=== PATIENT | male | born 1965 | race Caucasian/White ===

== ENCOUNTER 2016-12-26 11:10 | Outpatient (CLI) ==
[2016-02-21 17:17] VITALS: BMI 29.0
--- NOTE | 2016-12-26 14:56 | MRI ---
EXAM: MRI lumbar spine without IV contrast. DATE: 26 Dec 2016. HISTORY: Low back pain. TECHNIQUE: Sagittal and axial T1W and T2W sequences of the lumbar spine along with sagittal IR and coronal T2W sequences were obtained using 1.2 Debi magnet. No IV contrast. COMPARISON: MRI L-spine 16 November 2015. FINDINGS: There are five [id number]-bic-hfblrdt lumbar vertebra. Alignment of the lumbar spine is normal. No acute lumbar fracture, subluxation, osseous malignancy, or pars interarticularis defect is iden tified. Lumbar vertebra are normal in height. Chronic Schmorl's nodes are seen at T11 through L3 l evels. Small/moderate anterolateral osteophytes are visible at L1-2 through L5-S1. Mild L1-2, L2-3 , and L3-4 disc space narrowing is detected. No sacral fracture or stress reaction is evident. SI joints are unremarkable. Conus medullaris terminates at T12-L1. Visible spinal cord is normal. No retroperitoneal lymphadenopathy, paraspinal mass, or aortic aneurysm is detected. Paraspinal mus culature is symmetric bilaterally. Visible portions of the liver, spleen, adrenal glands, and right kidney are normal. A T2W bright, T1W dark, to by 2 cm lesion in the upper pole cortex left kidney is essentially unchanged from November 2015. No bowel obstruction or neoplasm is evident. Segmental analysis: T11-12: Normal, except for minor right foraminal narrowing due to minor right facet arthropathy. T12-L1: Normal. L1-2: Small concentric disc bulge, minor facet arthropathy and dorsal epidural fat cause mild centr al canal stenosis and minor bilateral foraminal encroachment. L2-3: Small concentric disc bulge, mild facet arthropathy, and abundant dorsal epidural fat cause m ild central canal stenosis and mild bilateral foraminal stenoses. L3-4: Small concentric disc bulge, mild bilateral facet arthropathy, and abundant dorsal epidural f at cause marked central canal stenosis and moderate to marked narrowing at the opening to each alpesh en. Each L3 nerve root appears to contact the disc bulge at the foramen. L4-5: Small concentric disc bulge, mild bilateral facet arthropathy, mild ligamentum flavum hypertr ophy and dorsal epidural fat cause marked central canal stenosis and marked bilateral foraminal sten oses. Each L4 nerve root appears to contact the disc bulge near the lateral margin of the foramen. L5-S1: Moderate concentric disc bulge and mild facet arthropathy cause moderate right and severe le ft foraminal stenoses. Right L5 nerve root contacts the disc bulge in the foramen. Left L5 nerve r oot is compressed in the foramen. No central canal stenosis. IMPRESSIONS: 1. Lumbar spine moderate spondylosis, mild facet arthropathy, and multilevel DDD - - mildly worse c ompared to November 2015. 2. Multilevel central canal stenoses (L1-2: Mild. L2-3: Mild. L3-4: Marked. L4-5: Marked). 3. Multilevel foraminal stenoses. Bilateral L3, L4, and L5 nerve roots are compromised near the fo ramen, and may be sources for pain/radiculopathy. 4. T-L-spine tiny, chronic Schmorl's nodes. 5. Left kidney cortical cyst - likely benign.
== END 2016-12-26 11:11 ==
LOC: RAD 11:10
PROVIDERS: ATTEND Physician Assistant Medical
DX: M54.2 Cervicalgia (principal); M54.5 Low back pain

== ENCOUNTER 2016-12-30 10:29 | Outpatient (CLI) ==
[2016-02-21 17:17] VITALS: BMI 29.0
--- NOTE | 2016-12-30 20:44 | MRI ---
EXAM: Cervical spine MRI without contrast. HISTORY: Neck pain. COMPARISON: Cervical spine CT scan 02/21/2016. TECHNIQUE: Multiplanar, multisequence MR images were acquired of the cervical spine without contras t. FINDINGS: There is a miles cisterna magna. The cervical cord has normal signal intensity. There is minor mid cervical levoscoliosis centered at C4-5 and mild rightward curvature of the upper thoraci c spine. There are postoperative ACDF changes at C6-7. Metallic artifact is present consistent wit h anterior screw and plate fixation. Prominent ventral osteophytes are present at C4-5 and C5-6. C anal diameter is developmentally narrow. There is mild adenoidal, palatine and lingual tonsillar hy pertrophy. This may represent normal variation or reactive adenopathy. Lung apices are clear. The re is a partially visualized right upper back intramuscular bright T1-T2 signal fatty lesion that me asures at least 2 cm AP by 5.5 cm TX. This has a few linear intermediate T1-T2 signal septations wi thout nodularity. C2-3: There is a small left posterior disc bulge and tiny left paracentral annular fissure that min imally indents the cervical cord. Ligamentum flavum hypertrophy is present and there is minor spina l stenosis. AP diameter of the thecal sac is 9.3 mm. C3-4: There is a mild disc bulge that minimally indents the cervical cord and minor left uncoverteb ral hypertrophy. There is mild spinal stenosis. AP diameter of the thecal sac is 9 mm. C4-5: There is a minor disc bulge and minor left paracentral disc osteophyte complex. There is no c entral canal stenosis or foraminal stenosis. C5-6: There is a posterior disc osteophyte complex with a small central disc protrusion that mildly indents the cervical cord. Ligamentum flavum hypertrophy and bilateral uncovertebral hypertrophy a re present. There is mild spinal stenosis and moderately severe right and mild to moderate left gisel ral foraminal stenosis. AP diameter of the thecal sac is 8.6 mm. C6-7: There are postoperative ACDF changes and there is a midline dorsal bony ridge that mildly ind ents the right paramidline cervical cord. Bilateral uncovertebral hypertrophy is present and there is moderately severe right and moderate left neural foraminal stenosis and mild spinal stenosis. AP diameter of the thecal sac is 8.3 mm. C7-T1: There is a minor diffuse disc osteophyte complex and uncovertebral hypertrophy with mild lef t lateral and minor right foraminal stenosis. IMPRESSION: 1. Postoperative ACDF changes C6-7 with right paramidline dorsal bony ridge that mildly indents the right cervical cord without edema. 2. Mild cervical degenerative spondylosis which causes mild spinal stenosis at C2-3, C3-4, C5-6 and C6-7. 3. Mild disc osteophyte complex C5-6 and small central disc protrusion. 4. Moderately severe right and mild to moderate left C5-6 and moderately severe right and moderate left C6-7 neural foraminal stenosis.
== END 2016-12-30 10:30 | disposition home or self-care (01) ==
LOC: RAD 10:29
PROVIDERS: ATTEND Physician Assistant Medical
DX: M54.2 Cervicalgia (principal); M54.5 Low back pain